=== PATIENT | female | born 1980 | race African-American/Black ===

== ENCOUNTER 2022-10-15 20:28 | Emergency (ER) | payer OTHER ==
[2022-10-15 20:35] VITALS: BP 129/78; PULSE 92; RESP 18; TEMP 97.6; BMI 45.7
== END 2022-10-15 21:14 | disposition home or self-care (01) ==
LOC: JERFT 20:28
DX: Z77.21 Contact with and (suspected) exposure to potentially hazardous body fluids (principal)
CPT/HCPCS: 99282-25